=== PATIENT | male | born 1945 | race Caucasian/White ===

== ENCOUNTER 2016-09-25 09:47 | Day surgery (SDC) | payer OTHER ==
[~2016-09-25] VITALS: Ht 182.9 cm; Wt 88.5 kg
[~2016-09-25 09:47] MED LIST: ASPIR-LOW81 MG PO; ASPIRIN EC325 MG PO; LEVOTHYROXINE125 MCG PO; LISINOPRIL5 MG PO; METFORMIN HCL1000 MG PO; METOPROLOL TART25 MG PO; SIMVASTATIN20 MG PO
[2016-09-25 10:18] LABS: POINT-OF-CARE METER ID UU13113696
[2016-09-25 12:52] LABS: BASE EXCESS 0.2 mEq/L (-3 to +3); BICARBONATE 27.2 mEq/L (22-26); CARBOXY HGB 1.9 % (0-5); METHEMOGLOBIN 1.3 % (0-1.5); PCO2 54 mm Hg (35-45); PO2 40 mm Hg (80-100); pH 7.31 (7.35-7.45)
[2016-09-25 12:55] LABS: BASE EXCESS -2.4 mEq/L (-3 to +3); BICARBONATE 24.5 mEq/L (22-26); METHEMOGLOBIN 1.4 % (0-1.5); PCO2 51 mm Hg (35-45); PO2 42 mm Hg (80-100)
[2016-09-25 12:58] LABS: DEVICE NC; O2 FLOW 2 L/MIN; SITE RIGHT ATRIUM
[2016-09-25 12:59] LABS: SITE PA; pH 7.29 (7.35-7.45)
[2016-09-25 12:59] LABS: TOTAL RESP RATE 14 resp/min
[2016-09-25 13:00] LABS: DEVICE NC; O2 FLOW 2 L/MIN; TOTAL RESP RATE 14 resp/min
[2016-09-25 13:56] LABS: POINT-OF-CARE METER ID UU13113819
== END 2016-09-25 20:35 | disposition home or self-care (01) ==
LOC: CATH 09:47
PROVIDERS: Internal Medicine Cardiovascular Disease
DX: I25.10 Atherosclerotic heart disease of native coronary artery without angina pectoris (principal); R07.9 Chest pain, unspecified; R06.02 Shortness of breath; I77.9 Disorder of arteries and arterioles, unspecified; I25.2 Old myocardial infarction; I10 Essential (primary) hypertension; E11.9 Type 2 diabetes mellitus without complications; E78.5 Hyperlipidemia, unspecified
CPT/HCPCS: 36600; 82803; 82948; 85347; 93005; C1769; C1887; C1894; J1644; J1815; J2250; J3010

== ENCOUNTER 2016-12-22 10:24 | Observation (INO) | payer OTHER ==
[~2016-12-22] VITALS: Ht 182.9 cm; Wt 90.9 kg
[2016-12-22 11:16] LABS: HEMATOCRIT 40.7 % (38.0-50.0); MCH 30.9 PG (29.0-34.0); MCHC 33.2 G/DL (30.0-36.0); MCV 93.1 FL (86-99); MEAN PLAT.VOLUME 9.7 uM^3 (9.0-12.4); PLATELET COUNT 192 K/uL (156-360); RBC DIS.WIDTH-SD 41.6 % (39-53); RED BLOOD COUNT 4.37 M/uL (4.00-5.50); WHITE BLOOD COUNT 5.1 K/uL (4.1-10.2)
[2016-12-22 11:26] LABS: CHLORIDE 104 mEq/L (99-109); POTASSIUM 4.5 mEq/L (3.7-5.4); SODIUM 137 mEq/L (136-147)
[2016-12-22 11:27] LABS: GLUCOSE 181 mg/dL (70-99)
[2016-12-22 11:29] LABS: ANION GAP 9 MEQ/L (2-14)
[2016-12-22 11:31] LABS: GFR ESTIMATE (CALCULATED) > 59 mL/min/
[2016-12-22 11:32] LABS: UREA NITROGEN (BUN) 24 mg/dL (9-23)
[2016-12-22 15:19] LABS: ADD MIUA? NO; BILIRUBIN NEGATIVE; BLOOD NEGATIVE; COLOR STRAW ((YELLOW)); GLUCOSE (STRIP) NEGATIVE; KETONES NEGATIVE; LEUKOCYTES NEGATIVE; NITRITE NEGATIVE; PROTEIN (STRIP) NEGATIVE; SPECIFIC GRAVITY 1.009 (1.000-1.030); UCUL ADDED? NO; UROBILINOGEN 0.2 MG/DL (0.2-1.0)
[2016-12-22 15:22] LABS: TROP-I INTERPRETATION NEGATIVE; TROPONIN-I < 0.01 ng/mL (0.0-0.30)
[2016-12-22 18:25] LABS: DIRECT BILIRUBIN 0.1 mg/dL (0.0-0.3); TOTAL BILIRUBIN 0.4 MG/DL (0.0-1.0)
[2016-12-22 18:26] LABS: ALKALINE PHOSPHATASE 64 IU/L (3-129)
[2016-12-22 21:30] VITALS: BP 141/73
[2016-12-22 23:04] LABS: POINT-OF-CARE METER ID UU14162513
[2016-12-22 23:35] LABS: PTT 25.8 (25-32)
[2016-12-23 04:15] VITALS: BP 112/55
[2016-12-23 05:33] LABS: EOSINOPHIL (%) 3.2 % (0-5); EOSINOPHIL COUNT 0.2 K/uL (0-0.3); HEMATOCRIT 38.8 % (38.0-50.0); IMMATURE GRANULOCYTE (%) 0.3 % (0.0-0.7); INSTRUMENT ABS NEUTROPHIL CT 3.4 K/uL; LYMPHOCYTE COUNT 1.9 K/uL (1.0-2.8); MCH 31.6 PG (29.0-34.0); MCHC 33.8 G/DL (30.0-36.0); MCV 93.5 FL (86-99); MEAN PLAT.VOLUME 9.3 uM^3 (9.0-12.4); MONOCYTE (%) 6.6 % (3-12); MONOCYTE COUNT 0.4 K/uL (0-0.8); NEUTROPHIL (%) 56.9 % (45-76); NEUTROPHIL COUNT 3.4 K/uL (1.8-6.4); PLATELET COUNT 183 K/uL (156-360); RBC DIS.WIDTH-CV 12.3 % (11.8-14.6); RBC DIS.WIDTH-SD 42.2 % (39-53); RED BLOOD COUNT 4.15 M/uL (4.00-5.50); WHITE BLOOD COUNT 5.9 K/uL (4.1-10.2)
[2016-12-23 06:16] LABS: ANION GAP 9 MEQ/L (2-14); CHLORIDE 106 MEQ/L (99-109); GFR ESTIMATE (CALCULATED) > 59 mL/min/; SAMPLE HEMOLYSIS CHECK 0; SAMPLE ICTERIC CHECK 0; SAMPLE LIPEMIA CHECK 0; SODIUM 140 MEQ/L (136-147); UREA NITROGEN (BUN) 17 mg/dL (9-23)
[2016-12-23 06:19] LABS: GLUCOSE 113 mg/dL (70-99)
[2016-12-23 08:29] VITALS: BP 133/67
[2016-12-23 08:31] VITALS: BP 121/72
[2016-12-23] MEDS ORDERED: ASPIR 8181 M1 PO (11:56)
[2016-12-23] MEDS ORDERED: LEVETIRACETAM250 MG PO (11:58)
[2016-12-23] MEDS ORDERED: XARELTO20 MG PO (11:58)
[2016-12-23] MEDS ORDERED: XARELTO15 MG PO ×2 (11:58→12:06)
[2016-12-23 12:00] VITALS: BP 96/57
[2016-12-23 13:47] LABS: Estimated Average Glucose 137 mg/dL (70-123); HEMOGLOBIN A1c (GLYCOHEMOGLOB) 6.4 % HGB (Below 5.7)
== END 2016-12-23 12:55 | disposition home or self-care (01) ==
LOC: EME 10:24 → EDOF 19:13 → 5WEST 19:13 → EDOF 19:13 → 5WEST 21:10
PROVIDERS: Hospitalist; Nurse Practitioner Adult Health; Physician Assistant
DX: R55 Syncope and collapse (principal); I82.432 Acute embolism and thrombosis of left popliteal vein; I71.9 Aortic aneurysm of unspecified site, without rupture; I25.10 Atherosclerotic heart disease of native coronary artery without angina pectoris; E11.9 Type 2 diabetes mellitus without complications; I10 Essential (primary) hypertension; E78.5 Hyperlipidemia, unspecified; Z87.891 Personal history of nicotine dependence; Q24.5 Malformation of coronary vessels
CPT/HCPCS: 70450; 71020; 71275; 74174; 80048; 80076; 81003; 82948; 83036; 84443; 84484; 85025; 85027; 85610; 85730; 93005; 93971; 95819; 99281; 99285; G0378; J1650; J7030